=== PATIENT | female | born 1990 | race Two or more races ===

== ENCOUNTER 2023-08-22 04:24 | Emergency (ER) | payer MEDICAID, OTHER, SELFPAY ==
--- NOTE | 2023-08-22 | ECG_ITS ---
Test Reason : CHEST PAIN Blood Pressure : / mmHG Vent. Rate : 160 BPM Atrial Rate : 160 BPM P-R Int : 130 ms QRS Dur : 084 ms QT Int : 254 ms P-R-T Axes : 074 047 -04 degrees QTc Int : 414 ms Sinus tachycardia Nonspecific ST and T wave abnormality Abnormal ECG No previous ECGs available Referred By: Generic ED Physician Electronically Signed By:SRI BASHIR MD
[2023-08-22 04:35] VITALS: BP 118/71; PULSE 160; RESP 21; TEMP 36.9; O2SAT 100; BMI 23.4
[2023-08-22 04:50] VITALS: PULSE 107
--- NOTE | 2023-08-22 05:04 | ED_ITS ---
HPI - Chest Pain General Chief Complaint: Chest Pain Stated Complaint: chest pain, body shakes Time Seen by Provider: 08/22/23 04:46 Source: patient, family and operator maintainer Mode of arrival: ambulatory History of Present Illness HPI narrative: 33-year-old female who woke up with epigastric pain that is burning in nature and is noted to be shaking and states that she feels like her heart is racing, she is taking her own antibiotic from the [place] for some tooth pain but denies any medication allergies. Patient denies any recent nausea, vomiting, fever, chills and states she does have a history of anxiety and panic attack. Related Data Previous Rx's Medication Instructions Recorded hydroxyzine HCl 25 mg tablet 25 mg PO TID PRN anxiety #20 tabs 08/22/23 Allergies Allergy/AdvReac Type Severity Reaction Status Date / Time No Known Allergies Allergy Verified 08/22/23 04:50 Review of Systems 2 Review of Systems: Pertinent positives and negatives as stated in HPI PMFSH Past Medical History Source: nursing notes reviewed Social History Social History Smoked in Last 30 Days: No Use of substances other than those prescribed or required for medical reasons: No Advance Directives: No Advance Directives Information Provided: No Physical Exam 2 Vital Signs: Vital Signs: Last Vital Signs Temp 98.4 F 08/22/23 04:35 Pulse 99 08/22/23 05:06 Resp 21 H 08/22/23 04:35 BP 118/71 08/22/23 04:35 Pulse Ox 100 08/22/23 04:35 O2 Del Method Room Air 08/22/23 04:35 BMI result Body Mass Index 23.4 VITAL SIGNS: Reviewed. GENERAL: Well developed, well nourished, very anxious HEAD: Normocephalic/atraumatic EYES: PERRLA, EOMI EARS: Ext canals without abnormality, TMs non-bulging and non-erythematous NOSE: Nares patent bilateral OROPHARYNX: no oral lesions noted, posterior pharynx clear and non-erythematous without noted tonsillar enlargement/erythema/exudates NECK: Supple, no adenopathy LUNGS: Normal breath sounds, tachypnea. No adventitious sounds or accessory muscle use. SpO2<100> CARDIOVASCULAR: Regular rate and rhythm without noted murmurs ABDOMEN: Soft, non-tender, non-distended with bowel sounds. MUSCULOSKELETAL: No tenderness, deformities, or effusions noted on gross inspection. EXTREMITIES: No cyanosis, clubbing or edema. SKIN: Inspection of the skin reveals no rashes NEUROLOGIC: Alert and oriented x 4. Strength and sensation to light touch were grossly intact x 4. Medications Administered Discontinued Medications Generic Name Dose Route Start Last Admin Trade Name Freq PRN Reason Stop Dose Admin Hydroxyzine HCl 50 mg 08/22/23 04:46 08/22/23 05:05 Hydroxyzine Hcl 50 Mg Tablet PO 08/22/23 04:47 50 mg ONCE ONE Administration Medical Decision Making Medical Decision Making [facility] Narrative: 33-year-old female with history and clinical presentation, DDX: Panic attack, SVT INTERVENTION: 50 mg hydroxyzine I reviewed all investigation and hematologic indices negative for leukocytosis or left shift, no anemia or thrombocytopenia. Chemistry indices negative for SAUL/electrolyte or liver enzyme derangements and beta hCG is undetectable. Urinalysis negative for UTI. UDS is negative. Viral testing is negative for influenza/RSV/COVID-19. On re-evaluation patient's heart rate is 87 and she states she is feeling much better. My interpretation is that patient suffered from a panic attack and will be discharged with an as-needed script for hydroxyzine. Differential Diagnosis Differential Diagnoses: The differential diagnosis associated with the presentation includes Please see the discussion above Admission/Observation Consideration of admission/observation: Escalation of care including admission/observation considered Please see the discussion above Lab Data [facility] Lab Attestation statement: I reviewed the patient's lab results. Please see the discussion above 08/22/23 05:01 08/22/23 05:01 Labs: Lab Results 08/22/23 08/22/23 Range/Units 05:01 05:09 WBC 7.3 (4.8-10.8) X10*3/uL RBC 4.05 L (4.20-5.50) X10*6/uL Hgb 12.3 (12.0-16.0) g/dl Hct 35.9 L (37.0-47.0) % MCV 88.6 (80.0-98.0) fL MCH 30.4 (27.0-33.0) pg MCHC 34.3 (31.0-35.0) g/dl RDW 12.7 (11.0-16.0) % Plt Count 270 (160-400) X10*3/uL MPV 9.1 L (9.4-12.3) fL Immature Gran % (Auto) 0.1 (0.0-0.4) % Neut % (Auto) 40.7 L (45-73) % Lymph % (Auto) 52.0 H (20-40) % Hall % (Auto) 6.4 (2-11) % Eos % (Auto) 0.4 (0-4) % Baso % (Auto) 0.4 (0-2) % Lymph # (Auto) 3.8 (1.2-4.9) X10*3/uL Hall # (Auto) 0.5 (0.1-1.2) X10*3/uL Eos # (Auto) 0.0 (0.0-0.4) X10*3/uL Baso # (Auto) 0.0 (0.0-0.2) X10*3/uL Abs Immat Gran (auto) 0.01 (0.00-0.03) X10*3/uL Absolute Neuts (auto) 3.0 (2.0-8.3) x10*3/uL Absolute Nucleated RBC 0.000 (0.0-0.012) X10*3/uL Nucleated RBC % (auto) 0.0 (0.0-0.2) /100WBC Sodium 142 (135-145) mmol/L Potassium 3.7 (3.3-5.1) mmol/L Chloride 109 H (96-108) mmol/L Carbon Dioxide 24 (22-29) mmol/L Anion Gap 13 (12-20) BUN 12 (9-16) mg/dL Creatinine 0.77 (0.5-1.4) mg/dL Estim Creat Clear Calc 86.7 Estimated GFR > 60 Random Glucose 108 (60-115) mg/dL Calcium 9.2 (8.4-10.2) mg/dL Total Bilirubin 0.2 (0.0-1.0) mg/dL AST 23 (5-31) U/L ALT 33 H (0-31) U/L Alkaline Phosphatase 56 (39-117) U/L Total Protein 6.7 (6.5-8.0) g/dL Albumin 4.1 (3.5-5.0) g/dL Beta HCG, Quant < 2 mIU/mL Urine Color Yellow Urine Appearance Cloudy Urine pH 6.5 (5.0-9.0) Ur Specific [place] 1.025 (1.005-1.025) Urine Protein Negative (Neg-Trace) mg/dL Urine Glucose (UA) Negative (Negative) mg/dL Urine Ketones Negative (Negative) mg/dL Urine Blood Trace H (Negative) Urine Nitrite Negative (Negative) Ur Leukocyte Esterase Trace H (Negative) Urine RBC 11-20 H (0-2) /HPF Urine WBC 0-5 (0-5) /HPF Ur Squamous Epith Cells 0-2 (0-2) /HPF Urine Bacteria Trace (None Seen) Hyaline Casts 0-2 (0-2) /LPF Urine Opiates Screen Not Detected (Not Detect) Urine Fentanyl Screen Not Detected (Not Detect) Ur Barbiturates Screen Not Detected (Not Detect) Ur Phencyclidine Scrn Not Detected (Not Detect) Ur Amphetamines Screen Not Detected (Not Detect) U Benzodiazepines Scrn Not Detected (Not Detect) Urine Cocaine Screen Not Detected (Not Detect) U Marijuana (THC) Screen Not Detected (Not Detect) Influenza Type A (PCR) NEGATIVE (Negative) Influenza Type B (PCR) NEGATIVE (Negative) RSV RNA Qual (PCR) NEGATIVE (Negative) SARS-CoV-2 RNA (RT-PCR) NEGATIVE (Negative) Independent Interpretation I performed an independent interpretation of an: EKG Interpretation: Sinus tachycardia, HR-160, no STEMI, AR/QRS/QTC is within normal limits. Discharge Plan Discharge Clinical Impression: Atypical chest pain, Panic attack Patient Disposition: Home, Self-Care Instructions: Noncardiac Chest Pain (ED), Panic Attack (ED) Additional Instructions: 1. [place] el medicamento para la ansiedad seg?n las indicaciones. 2. Establezca atenci?n con un m?dico de atenci?n primaria lo antes posible. Regrese a la rosalinda de emergencias si los s?ntomas empeoran. 1. Take the medication for your anxiety as directed. 2. Please establish care with a primary care doctor at your earliest convenience. Return to the ER for any worsening symptoms. Prescriptions: New hydroxyzine HCl 25 mg tablet 25 mg PO TID PRN (Reason: anxiety) Qty: 20 0RF Print Language: Palestinian
[2023-08-22] MEDS: hydrOXYzine HCL 50 MG TABLET PO (05:05)
[2023-08-22 05:06] VITALS: PULSE 96; PULSE 99
[2023-08-22 05:06] LABS: MANUAL DIFF FLAG NO
[2023-08-22 05:07] LABS: Basophils Percent Auto 0.4 % (0-2); Eosinophils Percent Auto 0.4 % (0-4); Hematocrit 35.9 % (37.0-47.0); Hemoglobin 12.3 g/dl (12.0-16.0); Imm Gran Abs Auto 0.01 X10*3/uL (0.00-0.03); Imm Gran Pct Auto 0.1 % (0.0-0.4); Lymphocytes Absolute Auto 3.8 X10*3/uL (1.2-4.9); Mean Corpuscular HGB Conc 34.3 g/dl (31.0-35.0); Mean Corpuscular Hemoglobin 30.4 pg (27.0-33.0); Mean Corpuscular Volume 88.6 fL (80.0-98.0); Mean Platelet Volume 9.1 fL (9.4-12.3); Monocytes Absolute Auto 0.5 X10*3/uL (0.1-1.2); Monocytes Percent Auto 6.4 % (2-11); Neutrophils Percent Auto 40.7 % (45-73); Platelet Count 270 X10*3/uL (160-400); Red Blood Count 4.05 X10*6/uL (4.20-5.50); Red Cell Distribution Width 12.7 % (11.0-16.0); White Blood Count 7.3 X10*3/uL (4.8-10.8)
--- NOTE | 2023-08-22 05:08 | PC.NURSE ---
pt sx appear to worsen when feeling anxious. pt verbalizes feeling anxious and heart rate on monitor goes from 90s to high 150-160s which resolves with rest and deep breathing. ice pack provided. pt medicated per mar. pt denies sob/n/v/d. mom at bedside. vss. call spring within reach.
[2023-08-22 05:15] LABS: Appearance Urine Cloudy; Color Urine Yellow; Glucose Urine UA Negative (Negative); Leukocyte Esterase Urine Trace (Negative); Nitrite Urine Negative (Negative); PH 6.5 (5.0-9.0); Specific Gravity - Urine 1.025 (1.005-1.025); UMIC TRIGGER UACC YES; Urine Blood Trace (Negative); Urine Ketones Negative (Negative); Urine Protein Negative (Neg-Trace)
[2023-08-22 05:20] LABS: Bacteria Urine Trace (None Seen); Hyaline Casts Urine 0-2 /LPF (0-2); Squamous Epithelial Cell Urine 0-2 /HPF (0-2); WBC Urine 0-5 /HPF (0-5)
[2023-08-22 05:24] LABS: Amphetamine Screen Urine Not Detected (Not Detect); Barbiturates, Urine Not Detected (Not Detect); Benzodiazepines Screen Urine Not Detected (Not Detect); Cannabinoid Screen Urine Not Detected (Not Detect); Cocaine Screen Urine Not Detected (Not Detect); Fentanyl, urine Not Detected (Not Detect); Opiate Screen Urine Not Detected (Not Detect); Phencyclidine Screen Urine Not Detected (Not Detect)
[2023-08-22 05:29] LABS: Alanine Aminotransferase 33 U/L (0-31); Albumin Level 4.1 g/dL (3.5-5.0); Alkaline Phosphatase 56 U/L (39-117); Anion Gap 13 (12-20); Aspartate Amino Transferase 23 U/L (5-31); Bilirubin Total 0.2 mg/dL (0.0-1.0); Blood Urea Nitrogen 12 mg/dL (9-16); Calcium 9.2 mg/dL (8.4-10.2); Carbon Dioxide 24 mmol/L (22-29); Chloride 109 mmol/L (96-108); Creatinine Clr Calc Pharmacy 86.7; Estimated Glomerular Filt Rate > 60; Glucose Random 108 mg/dL (60-115); Potassium 3.7 mmol/L (3.3-5.1); Sodium 142 mmol/L (135-145); Total Protein 6.7 g/dL (6.5-8.0)
[2023-08-22 05:31] LABS: HCG Quantitative < 2 mIU/mL
[2023-08-22 05:47] LABS: Influenza A PCR NEGATIVE (Negative); Influenza B PCR NEGATIVE (Negative); Resp Syncy Virus RNA Qual PCR NEGATIVE (Negative); SARS COV2 PCR INHOUSE NEGATIVE (Negative)
[2023-08-22 06:08] VITALS: BP 106/61; PULSE 113; RESP 16; TEMP 36.8; O2SAT 96
== END 2023-08-22 06:45 | disposition home or self-care (01) ==
PROVIDERS: Emergency Provider Student in an Organized Health Care Education/Training Program
DX: R07.89 Other chest pain (principal); F41.0 Panic disorder [episodic paroxysmal anxiety]; F43.0 Acute stress reaction; R00.2 Palpitations; Z11.52 Encounter for screening for COVID-19; Z20.822 Contact with and (suspected) exposure to COVID-19; Z79.899 Other long term (current) drug therapy
CPT/HCPCS: 0241U; 36415; 80053; 80307; 81001; 84702; 85025; 93005; 99283; 99285

== ENCOUNTER → 2023-08-22 04:30 | Outpatient (BNV) | payer SELFPAY | PROVIDERS: Emergency Provider Student in an Organized Health Care Education/Training Program; Visit Provider Internal Medicine Cardiovascular Disease | DX: R07.9 Chest pain, unspecified (principal) | CPT/HCPCS: 93010 ==

== ENCOUNTER 2025-02-05 09:50 | Outpatient (REF) | payer MEDICAID, SELFPAY ==
--- OUTSIDE RECORDS SUMMARY | 2025-02-05 09:00 | XMS_ITS | Encounter Summary ---
Author Organization [employer] Address [address] [facility] [address] [place] [address] Care Team Providers Care Tree Specialist Name Role Phone Mia Ibrara Primary Care Provider [phone] Encounter Details Date Type Department Care Team ([facility] st Contact Info) Description 02/05/2025 9:00 AM EDT Office Visit [facility] MED[facility]INE [address] [place] [address] Mia Ibarra FNP [address] [place] [address] Well adult health check (Primary Dx) Social History Tobacco Use Types Packs/Day Years Used Date Smoking Tobacco: Never Passive Smoke Exposure: Never Smokeless Tobacco: Never Tobacco Cessation:Counseling Given: Not Answered Alcohol Use Standard Drinks/Week Comments Never 0 (1 standard drink = 0.6 oz pur e alcohol) Depression Answer Date Recorded Patient Health Questionnaire-9 Score 7 02/05/2025 Patient Health Questionnaire-9 Score 7 02/05/2025 Last PHQ-9: Questionnaire Data Not on file 0 02/05/2025 Housing Stability Answer Date Recorded What is your housing situation today? I have keke abbott 01/29/[address] you li ve. Do you have problems with any of the following? None of the above 01/29/2025 Food Insecurity Answer Date Recorded Within the past 12 months, y ou worried that your food would run out before you got money to buy more: Never True 01/29/2025 Within the past 12 months,th e food you bought just didn't last and you didn't have enough money to get more: Never True Transportation Answer Date Recorded In the past 12 months, has l ack of transportation kept you from medical appts, meetings, work or from getting things needed for daily living? No 01/29/2025 Utilities Answer Date Recorded In the past 12 months, has t he electric, gas, oil or water company threatened to shut off services in your home? No 01/29/2025 Depression Answer Date Recorded Patient Health Questionnaire-2 Score 2 02/05/2025 Internet Access Answer Date Recorded Internet Access Q1 Yes 01/29/2025 Internet Access Q2 Not on file 01/29/2025 Comments Yes Sex and Gender Information Value Date Recorded Sex Assigned at Female 01/16/2025 9:58 AM EDT Legal Sex Female 9:44 AM EST Gender Identity Female 01/16/2025 9:58 AM EDT Sexual Orientation Straight 01/16/2025 9: 58 AM EDT documented as of this encounter Last Filed Vital Signs Vital Sign Reading Time Taken Comments Blood Pressure 126/72 02/05/2025 9:00 AM EDT Pulse 85 02/05/2025 9:00 AM EDT Temperature 37.1 C (98.7 F) 02/05/2025 9:00 AM EDT Respiratory Rate 16 02/05/2025 9:00 AM EDT Oxygen Saturation 98% 02/05/2025 9:00 AM EDT Inhaled Oxygen Concentration - - Weight 65.4 kg (144 lb 4 oz) 02/05/2025 9:00 AM EDT Height 160.9 cm (5' 3.34 ) 02/05/2025 9:00 AM ED T Body Mass Index 25.28 02/05/2025 9:00 AM EDT documented in this encounter Functional Status * Over the past 2 weeks, how often have you been bothered by any of the following problems? Question Answer Date of Assessment Author Patient Health Questionnaire -2 Score 2 02/05/2025 9:02 AM EDT Shannan Clarke MA * Little interest or pleasure in doing things Answer Date of Assessment Author Several days 02/05/2025 9:02 AM EDT Shannan Santos MA * Feeling down, depressed, or hopeless Answer Date of Assessment Author Several days 02/05/2025 9:02 AM Shannan Douglass MA * Trouble falling or staying asleep, or sleeping too much Answer Date of Assessment Author More than half the days 02/05/2025 9:02 AM Shannan Vallejo MA * Feeling tired or having little energy Answer Date of Assessment Author More than half the days 02/05/2025 9:02 AM Shannan Vallejo MA * Poor appetite or overeating Answer Date of Assessment Author Not at all 02/05/2025 9:02 AM Shannan Garcia Ma, MA * Feeling bad about yourself - or that you are a failure or have let yourself or your family down Answer Date of Assessment Author Several days 02/05/2025 9:02 AM Shannan Douglass MA * Trouble concentrating on things, such as reading the newspaper or watching television Answer Date of Assessment Author Not at all 02/05/2025 9:02 AM Shannan Douglass MA * Moving or speaking so slowly that other people could have noticed? Or the opposite - being so fidgety or restless that you have been moving around a lot more than usual. Answer Date of Assessment Author Not at all 02/05/2025 9:02 AM Shannan Douglass MA * Thoughts that you would be better off or hurting yourself in some way Answer Date of Assessment Author Not at all 02/05/2025 9:02 AM Shannan Douglass MA * Patient Health Questionnaire-9 Score Answer Date of Assessment Author 7 02/05/2025 9:02 AM Shannan Douglass MA * How difficult have these problems made it for you to do your work, take care of things at home, or get along with other people? Answer Date of Assessment Author Not difficult at all 02/05/2025 9:02 AM Shannan Smith MA * Over the last 2 weeks, how often have you been bothered by any of the following problems? Question Answer Date of Assessment Author Feeling nervous, anxious, or on edge 2 02/05/2025 9:01 AM EDT Shannan Clarke MA Not being able to stop or control worrying 2 02/05/2025 9:01 AM EDT Shannan Clrake MA Worrying too much about different things 2 02/05/2025 9:01 AM EDT Shannan Clarke MA Trouble relaxing 2 02/05/2025 9:01 AM EDT Shannan Malik MA Being so restless that it is hard to sit still 1 02/05/2025 9:01 AM EDT Shannan Clarke MA Becoming easily annoyed or irritable 1 02/05/2025 9:01 AM EDT Shannan Clarke MA Feeling afraid as if somethi ng awful might happen 2 02/05/2025 9:01 AM EDT Shannan Clarke MA ANASTASIIA-7 Total Score 12 02/05/2025 9:01 AM EDT Shannan Clarke MA documented as of this encounter Plan of Treatment Scheduled Orders Name Type Priority Associated Diagnoses Orde r Schedule HIV-1/2 Antigen and Antibodies, Fourth Generation, with Reflexes Lab Routine Well adult health check Expected: 02/05/2025 (Approximate), Expires: 02/05/2026 Hepatitis C Antibody with Reflex to HCV, RNA, Quantitative, Real-Time PCR Lab Routine Well adult health check Expected: 02/05/2025, Expires: 02/05/2026 Hepatitis B surface antigen, EIA Lab Routine Well adult health check Expected: 02/05/2025 (Approximate), Expires: 02/05/2026 Hepatitis B Surface Antibody, Qualitative Lab Routine Well adult health check Expected: 02/05/2025 (Approximate), Expires: 02/05/2026 Hepatitis B Core Antibody, Total Lab Routine Well adult health check Expected: 02/05/2025 (Approximate), Expires: 02/05/2026 CBC auto differential Lab Routine Well adult health check Expected: 02/05/2025 (Approximate), Expires: 02/05/2026 Lipid Panel, Standard Lab Routine Well adult health check Expected: 02/05/2025 (Approximate), Expires: 02/05/2026 documented as of this encounter Visit Diagnoses Diagnosis Well adult health check- Primary Unspecified general medical examination documented in this encounter Additional Health Concerns Assessment Noted Time PHQ-9 Depression Total Score: 7 02/06/20 25 9:02 AM EDT documented as of this encounter Care Teams Tree Specialist Relationship Specialty Start Date End Date Mia Ibarra FNP [address] [place] [address] PCP - General Family Medicine 02/05/25 documented as of this encounter
--- OUTSIDE RECORDS SUMMARY | 2025-02-05 10:32 | XMS_ITS | Encounter Summary ---
Author Organization [employer] Address [address] [place] [address] Care Team Providers Care Cattery Operator Name Role Phone Unavailable Primary Care Provider Unavailabl e Encounter Details Date Type Department Care Team (Late st Contact Info) Description 02/04/2025 Telephone [facility] MEDICINE [address] [place] [address] Katia Blanca MA Social History Tobacco Use Types Packs/Day Years Used Date Smoking Tobacco: Never Smokeless Tobacco: Never Alcohol Use Standard Drinks/Week Comments Never 0 [...] AM EDT documented as of this encounter Miscellaneous Notes * Telephone Encounter - Katia Blanca MA - 02/04/2025 12:16 PM EDT Chart Prep Labs: done Images: not applicable Screenings: PAP and HIV screening Vaccines due: Covid Due, Tdap Due, Hep B Due, Flu Due, and HPV Referrals: Completed Overdue care gaps: Sbirt, PQ9, and GAD7 documented in this encounter Plan of Treatment Not on file documented as of this encounter Visit Diagnoses Not on filedocumented in this encounter
--- OUTSIDE RECORDS SUMMARY | 2025-02-05 10:32 | XMS_ITS | Clinical Summary ---
Author Organization [employer] Address [address] [facility] [address] [place] [address] Care Team Providers Care Obstetrics/Gynecology Nurse Name Role Phone Mia Ibarra Primary Care Provider [phone] Allergies No known active allergies Medications Pyridoxine HCl 10 MG tabletIndication s: with 11 completed weeks gestation,Nausea Take 1 tablet (10 mg) by mouth every 8 (eight) hours if needed (nausea). 30 tablet 1 01/16/2025 Active Active Problems Problem Noted Date Diagnosed Date Anxiety 01/16/2025 Assessment & Plan (01/16/2025 11:22 AM EDT): Reports anxiety and sleep disturbances. Not currently medicated. Discussed medication dangers for . Comments Yes Encounters Date Type Department Care Team Description 02/05/2025 9:00 AM EDT Office Visit [facility] MEDICINE [address] [place] [address] Mia Ibarra FNP Well adult health check (Primary Dx) 02/05/2025 Travel 02/04/2025 Telephone [facility] MEDICINE [address] [place] [address] Katia Blanca MA 01/29/2025 Patient Outreach [facility] PEDS [address] [place] [address] Mia Ibarra FNP Pre-visit Planning (SDOH negative, Tobacco screening negative) 01/29/2025 Travel 01/16/2025 10:00 AM EDT Office Visit [facility] WALK-IN CENTER [address] [place] [address] Ronit Mehta MD with 11 completed weeks gestation (Primary Dx); Nausea; Anxiety 01/16/2025 Travel 01/16/2025 Telephone [facility] INS ENROLLMENT [address] [place] [address] Agnes Jackson MD from Last 3 Months Family History Medical History Relation Name Comments Colon cancer Maternal Grandfather sd at 90 Cancer Mother's Brother Heart disease Mother's Brother Cancer Mother's Sister Relation Name Status Comments Maternal Grandfather Mother's Brother Mother's Sister Social History Tobacco Use Types Packs/Day Years [...] Orientation Straight 01/16/2025 9: 58 AM EDT Last Filed Vital Signs Vital Sign Reading [...] Mass Index 25.28 02/05/2025 9:00 AM EDT Plan of Treatment Health Maintenance Due Date Last Done Comments HIV Screening 1991 Family Planning (PISQ) 2006 HPV Vaccines (1 - 3-dose series) 2006 Hepatitis C Screening 2009 DTaP/Tdap/Td Vaccines (1 - Tdap) 2010 Hepatitis B Vaccines (1 of 3 - 19+ 3-dose series) 2010 Pap Smear 02/02/2012 Cervical Cancer Screening 2021 HPV/Cotest 2021 COVID-19 Vaccine ( - 2023-2 5 season) 2024 Influenza Vaccine (#1) 2025 Disability Screening 01/29/2026 01/29/2025 SDOH Screening 01/29/2026 01/29/2025 Alcohol/Substance Use Screening 02/05/2026 02/05/2025 Depression Screening 02/05/2026 02/05/2025, 02/05/2025 Tobacco Screening 02/05/2026 02/05/2025 Zoster Vaccines (1 of 2) 2041 RSV Patients and Patients Aged 60 years or older (1 - 1-dose 75+ series) 2066 HIB Vaccines Aged Out No longer eligi ble based on patient's age to complete this topic Hepatitis A Vaccines Aged Out No long er eligible based on patient's age to complete this topic IPV Vaccines Aged Out No longer eligi ble based on patient's age to complete this topic Meningococcal B Vaccine Aged Out No l onger eligible based on patient's age to complete this topic Meningococcal Vaccine Aged Out No inessa russ eligible based on patient's age to complete this topic Pneumococcal Vaccine: Pediatrics (0 to 5 Years) and At-Risk Patients (6 to 49) Years Aged Out No longer eligible b ased on patient's age to complete this topic RSV under 20 months Aged Out No longe r eligible based on patient's age to complete this topic Rotavirus Vaccines Aged Out No longer eligible based on patient's age to complete this topic Procedures Procedure Name Priority Date/Time Associated Diagnosis Comments POCT , URINE Routine 01/16/2025 10:47 AM EDT with 11 completed weeks gestation from Last 3 Months Results * (ABNORMAL) POCT , urine manually resulted (01/16/2025 10:47 AM EDT) Preg Test, Ur Positive (A) Negative, Indeterminate, None Detected, Invalid, Specimen unsatisfactory for evaluation, Weakly Positive, 2+ QC Media Lot # [id number] Lot# Expiration Date [id number] Urine 01/16/2025 10:4 7 AM EDT Ronit Mehta MD POINT OF CARE TEST ENTER/E DIT ORDERABLES Final Result from Last 3 Months Insurance [facility] [employer] C3 Care Teams Obstetrics/Gynecology Nurse Relationship Specialty Start Date End Date Mia Ibarra FNP [address] [place] [address] PCP - General Family Medicine 02/05/25
--- OUTSIDE RECORDS SUMMARY | 2025-02-05 10:32 | XMS_ITS | Encounter Summary ---
Author Organization [employer] Address [address] [facility] [address] [place] [address] Care Team Providers Care Supervisor Costuming Name Role Phone Mia Ibarra DIGITAL PRODUCTION MANAGER Primary Care Provider [phone] Encounter Details Date Type Department Care Team (Latest Contact Info) Description 02/05/2025 Travel Social History Tobacco Use Types Packs/Day Years Used Date Smoking Tobacco: Never Passive Smoke Exposure: Never Smokeless Tobacco: Never Alcohol Use Standard [...] AM EDT documented as of this encounter Functional Status * Over the [...] 9:02 AM EDT Shannan Santos MA * Trouble falling or staying asleep, or sleeping too much Answer Date of Assessment Author More than half the days 02/05/2025 9:02 AM EDT R Shannan Myers MA * Feeling tired or having little energy Answer Date of Assessment Author More than half the days 02/05/2025 9:02 AM EDT R Shannan Myers MA * Poor appetite or overeating Answer Date of Assessment Author Not at all 02/05/2025 9:02 AM EDT Shannan Santos MA * Feeling bad about yourself - or that you are a failure or have let yourself or your family down Answer Date of Assessment Author Several days 02/05/2025 9:02 AM EDT Shannan Santos MA * Trouble concentrating on things, such as reading the newspaper or watching television Answer Date of Assessment Author Not at all 02/05/2025 9:02 AM EDT Shannan Santos MA * Moving or speaking so slowly [...] Author Not at all 02/05/2025 9:02 AM MARYAT Shannan Santos MA * Patient Health Questionnaire-9 Score Answer Date of Assessment Author 7 02/05/2025 9:02 AM EDT Shannan Santos MA * How difficult have these problems made it for you to do your work, take care of things at home, or get along with other people? Answer Date of Assessment Author Not difficult at all 02/05/2025 9:02 AM EDT Shannan Perla MA * Over the last 2 weeks, how often have you been bothered by any of the following problems? Question Answer Date of Assessment Author Feeling nervous, anxious, or on edge 2 02/05/2025 9:01 AM EDT Shannan Clarke MA Not being able to stop or control worrying 2 02/05/2025 9:01 AM MARYAT Shannan Clarke MA Worrying too much about different things 2 02/05/2025 9:01 AM MARYAT Shannan Clarke MA Trouble relaxing 2 02/05/2025 9:01 AM EDT Shannan Malik MA Being so restless that it is hard to sit still 1 02/05/2025 9:01 AM MARYAT Shannan Clarke MA Becoming easily annoyed or irritable 1 02/05/2025 9:01 AM MARYAT Shannan Clarke MA Feeling afraid as if somethi ng awful might happen 2 02/05/2025 9:01 AM MARYAT Shannan Clarke MA ANASTASIIA-7 Total Score 12 02/05/2025 9:01 AM Shannan Lozano MA documented as of this encounter Plan of Treatment Not on file documented as of this encounter Visit Diagnoses Not on filedocumented in this encounter Additional Health Concerns Assessment Noted Time PHQ-9 Depression Total Score: 7 02/06/20 9:02 AM EDT documented as of this encounter Care Teams Supervisor Costuming Relationship Specialty Start Date End Date Mia Ibarra FNP [address] [place] [address] PCP - General Family Medicine 02/05/25 documented as of this encounter
[2025-02-05 11:12] LABS: MANUAL DIFF FLAG NO
[2025-02-05 11:16] LABS: Hematocrit 40.0 % (37.0-47.0); Hemoglobin 13.6 g/dl (12.0-16.0); Imm Gran Abs Auto 0.03 X10*3/uL (0.00-0.03); Imm Gran Pct Auto 0.3 % (0.0-0.4); Lymphocytes Absolute Auto 2.5 X10*3/uL (1.2-4.9); Mean Corpuscular HGB Conc 34.0 g/dl (31.0-35.0); Mean Corpuscular Hemoglobin 32.2 pg (27.0-33.0); Mean Corpuscular Volume 94.8 fL (80.0-98.0); NRBC Abs Auto 0.000 X10*3/uL (0.0-0.012); NRBC Pct Auto 0.0 /100WBC (0.0-0.2); Platelet Count 285 X10*3/uL (160-400); Red Blood Count 4.22 X10*6/uL (4.20-5.50); White Blood Count 9.4 X10*3/uL (4.8-10.8)
[2025-02-05 11:59] LABS: Cholesterol 172 mg/dL (<200); HDL Cholesterol 62 mg/dL (>40); Triglycerides 62 mg/dL (<150)
[2025-02-06 04:00] LABS: HBS Num1 1.32 mIU/mL (0-7.99); HBc Num1 0.06 S/CO (0.00-0.79); HBsAGNum1 0.38 S/CO (0.00-0.99); HIV Num 1 0.04 S/CO (0.00-0.99); Hepatitis B Surface Antigen Negative (Negative); ~HepC Num1 0.11 S/CO (0.00-0.79); ~Hepatitis B Surface Antibody NONREACTIVE (Nonreactive); ~Hepatitis C Antibody Nonreactive (Nonreactive)
== END 2025-02-05 09:51 | disposition home or self-care (01) ==
LOC: HO.HHCL 09:50
PROVIDERS: PCP Nurse Practitioner Family; Visit Provider Nurse Practitioner Family
DX: Z00.00 Encounter for general adult medical examination without abnormal findings (principal); Z11.59 Encounter for screening for other viral diseases; Z11.4 Encounter for screening for human immunodeficiency virus [HIV]
CPT/HCPCS: 36415; 80061; 85025; 86704; 86706; 86803; 87340; 87389

== ENCOUNTER 2025-04-09 09:03 | Outpatient (REF) | payer MEDICAID, SELFPAY ==
--- OUTSIDE RECORDS SUMMARY | 2025-04-09 10:45 | XMS_ITS | Encounter Summary ---
Author Organization [employer] Address [address] [facility] 7t [place] [address] Care Team Providers Care Pmo Manager Name Role Phone Giuseppe Ibarraupe WILMA Primary Care Provider [phone] Reason for Visit * Reason Comments pap Encounter Details Date Type Department Care Team (Latest Contact Info) Description 04/09/2025 10:45 AM EDT Procedure Visit [facility] MEDIC[facility] [address], [place] [phone] Mellissa Hassan CNM [address], [place] [phone] Abnormal uterine bleeding (Primary Dx); Cervical cancer screening; Urinary symptom or sign Social History Tobacco Use Types Packs/Day Years Used Date Smoking Tobacco: Never Passive Smoke Exposure: Never Smokeless Tobacco: Never Tobacco Cessation:Counseling Given: Not Answered Alcohol Use Standard Drinks/Week Comments Never 0 (1 standard drink = 0.6 oz pur e alcohol) Depression Answer Date Recorded Patient Health Questionnaire-9 Score 12 02/24/2025 Patient Health Questionnaire-9 Score 12 02/24/2025 Last PHQ-9: Questionnaire Data Not on file 0 02/24/2025 Housing Stability Answer Date Recorded What is [...] Answer Date Recorded Patient Health Questionnaire-2 Score 4 02/24/2025 Internet Access Answer Date Recorded Internet Access Q1 Yes 01/29/2025 Internet Access Q2 Not on file 01/29/2025 Comments No Intention Date Recorded Wants to become (finding) 04/09 Sex and Gender Information Value Date Recorded Sex Assigned at Female 01/16/2025 9:58 AM EDT Legal Sex Female 9:44 AM EST Gender Identity Female 01/16/2025 9:58 AM EDT Sexual Orientation Straight 01/16/2025 9: 58 AM EDT documented as of this encounter Last Filed Vital Signs Vital Sign Reading Time Taken Comments Blood Pressure 118/78 04/09/2025 11:01 AM EDT Pulse 85 04/09/2025 11:01 AM EDT Temperature 36.3 C (97.4 F) 04/09/2025 11:01 AM EDT Respiratory Rate 14 04/09/2025 11:01 AM EDT Oxygen Saturation 99% 04/09/2025 11:01 AM EDT Inhaled Oxygen Concentration - - Weight 68.5 kg (151 lb) 04/09/2025 11:01 AM EDT Height - - Body Mass Index 26.46 02/05/2025 9:00 AM EDT documented in this encounter Progress Notes * Mellissa Hassan CNM - 04/09/2025 10:45 AM EDT Subjective Patient ID: Eri Hurt is a 35 y.o. female who presents for followup early loss Early loss about a month and a half ago, medication management. Bled x 15 days. Has been having frequent bleeding since then which is worsened by heavy lifting. She wonders if she has UTI. Denies urinary symptoms. 1 AMAB partner x 7weeks. Would like to be again. Not taking . No pap on file. She is unsure when she had one last. 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 Review of Systems Constitutional: Negative for chills and fever. Genitourinary: Positive for menstrual problem and vaginal bleeding. Negative for difficulty urinating, dysuria, frequency, pelvic pain, urgency, vaginal discharge and vaginal pain. Musculoskeletal: Negative for back pain. Objective BP 118/78 (BP Location: Left arm, Patient Position: Sitting, BP Cuff Size: Adult) Pulse 85 Temp97.4 ??F (36.3 ??C) (Oral) Resp 14 Wt 151 lb (68.5 kg) LMP 04/09/2025 SpO2 99% BMI 26.46 kg/m?? Physical Exam Incident Analyst present: declines log operations coordinator. Constitutional: Appearance: Normal appearance. Abdominal: Tenderness: There is no right CVA tenderness or left CVA tenderness. Genitourinary: General: Normal vulva. Labia: Right: No rash, tenderness, lesion or injury. Left: No rash, tenderness, lesion or injury. Vagina: Normal. No signs of injury and foreign body. No vaginal discharge, erythema, tenderness, bleeding or lesions. Cervix: No cervical motion tenderness, discharge, friability, lesion, erythema, cervical bleeding or eversion. Uterus: Normal. Not enlarged and not tender. Adnexa: Right adnexa normal and left adnexa normal. Right: No mass, tenderness or fullness. Left: No mass, tenderness or fullness. Comments: Scant blood in vagina Neurological: Mental Status: She is alert. Psychiatric: Mood and Affect: Mood normal. Behavior: Behavior normal. Assessment/Plan Diagnoses and all orders for this visit: Abnormal uterine bleeding - POCT , urine manually resulted - POCT fern test, vaginal fluid manually resulted Negative test today, no obvious vaginitis. Will send pap and rule out STI. If all negative, will order pelvic ultrasound. sent in. Cervical cancer screening - Pap Smear - STI testing add on (NG, CT, Trich) Pap and STI testing sent. Repeat pap/HPV 5y if normal/HPV neg. Urinary symptom or sign - Culture, Urine, Routine; Future Urine discarded from visit. Will have her go to lab for urine culture and contact her with results. Other orders - Vit-Fe Fumarate-FA ( Plus) 27-1 MG tablet; One tablet by mouth daily documented in this encounter Plan of Treatment Upcoming Encounters Date Type Department Care Team (Late st Contact Info) Description 07/24/2025 3:00 PM EST Office Visit [facility] OPTOMETRY [address] [place], [place] [phone] TarCharley nayak, OD [address] [place] [address] Scheduled Orders Name Type Priority Associated Diagnoses Orde r Schedule Pap Smear Pathology and Cytology Routine Cervical cancer screening Ordered: 04/09/2025 STI testing add on (NG, CT, Trich) Pathology and Cytology Routine Cervical cancer screening Ordered: 04/09/2025 Culture, Urine, Routine Microbiology Routine Urinary symptom or sign Expected: 04/09/2025 (Approximate), Expires: 04/09/2026 documented as of this encounter Procedures Procedure Name Priority Date/Time Associated Diagnosis Comments POCT , URINE Routine 04/09/2025 11:38 AM EDT Abnormal uterine bleeding POCT WET MOUNT/MOOKIE Routine 04/09/2025 11 :36 AM EDT Abnormal uterine bleeding documented in this encounter Results * POCT , urine manually resulted (04/09/2025 11:38 AM EDT) Preg Test, Ur Negative Negative, Indeterminate, None Detected, Invalid, Specimen unsatisfactory for evaluation, Weakly Positive, 2+ Urine 04/09/2025 11:3 8 AM EDT Mellissa Hassan CNM POINT OF CARE TEST ENTER/ EDIT ORDERABLES Final Result * POCT fern test, vaginal fluid manually resulted (04/09/2025 11:36 AM EDT) MOOKIE Prep Negative Comment:pH 4.5, neg whiff, n eg clue, neg yeast, neg trich, neg wbc Vaginal Fluid Vaginal structure / Unknown 04/09/2025 11:36 AM EDT Mellissa Hassan CNM POINT OF CARE TEST ENTER/ EDIT ORDERABLES Final Result documented in this encounter Visit Diagnoses Diagnosis Abnormal uterine bleeding- Primary Unspecified disorder of menstruation and other abnormal bleeding from female genital tract Cervical cancer screening Screening for malignant neoplasm of the cervix Urinary symptom or sign documented in this encounter Additional Health Concerns Assessment Noted Time PHQ-9 Depression Total Score: 12 02/24/ 025 5:23 PM EDT documented as of this encounter Care Teams Pmo Manager Relationship Specialty Start Date End Date Mia Ibarra FNP [address] [place] [phone] PCP - General Family Medicine 02/05/25 documented as of this encounter
--- OUTSIDE RECORDS SUMMARY | 2025-04-10 10:08 | XMS_ITS | Clinical Summary ---
Author Organization [employer] Address [address] [facility] 7[address] [place] [address] Care Team Providers Care Commercial Loan Administrator Name Role Phone FlexGiuseppe sabillonupe WILMA Primary Care Provider [phone] Allergies No known active allergies Medications * This document contains information received from the source organization and may not represent a complete record from that organization. Pyridoxine HCl 10 MG tabletIndication s: with 11 completed weeks gestation,Nausea Take 1 tablet (10 mg) by mouth every 8 (eight) hours if needed (nausea). 30 tablet 1 01/16/2025 Active multivitamin () 27-0.8 MG tablet Take 1 tablet by mouth Once per day. 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 Pt reports she recently had a miscarriage. Offered grief counseling but pt feels not ready yet to address her loss. Pt reports having diagnosis for anxiety and depression and following with mental health providers in the [place]. Pt lost care when [place] the [place] two [place] ago. Pt posses the insight and strength to overcome this difficult time. She also receives family support from her and mother. Anxiety 01/16/2025 Assessment & Plan (01/16/2025 11:22 AM EDT): Reports anxiety and sleep disturbances. Not currently medicated. Discussed medication dangers for . Encounters * This document contains information received from the source organization and may not represent a complete record from that organization. Date Type Department Care Team Description 04/09/2025 10:45 AM EDT Procedure Visit [facility] [address] [place] [phone] Mellissa Hassan CNM Abnormal uterine bleeding (Primary Dx); Cervical cancer screening; Urinary symptom or sign 04/08/2025 Travel 04/08/2025 Telephone [facility] [address] [place] [phone] Mia Ibarra FNP Nurse Triage 03/14/2025 Population Health Risk Score [facility] (C[facility]) Department [address] [phone] Provider, Population Health Generic 02/24/2025 Telephone [facility] [address] [place] [address] Mia Ibarra FNP [place] (I called the patient regarding a Health Care Provider Form, from [facility]. She stated that she is , and had been having abdominal pain when she was doing heavy lifting at work. She has been out of work since 02/09/25, and cannot return until she turns in the FMLA form. She would like for the dates of absence to be from 02/09/25 to 02/14/25.) 02/05/2025 9:00 AM EDT Office Visit [facility] [address] [place] [address] Mia Ibarra FNP Well adult health check (Primary Dx); Anxiety; 9 weeks gestation of ; Lower abdominal pain, unspecified 02/05/2025 Travel 02/04/2025 Telephone [facility] [address] [place] [address] Katia Blanca MA 01/29/2025 Patient Outreach [facility] [address] [place] [address] Mia Ibarra FNP Pre-visit Planning (SDOH negative, Tobacco screening negative) 01/29/2025 Travel 01/16/2025 10:00 AM EDT Office Visit [facility] [address] [place] [address] Ronit Mehta MD with 11 completed weeks gestation (Primary Dx); Nausea; Anxiety 01/16/2025 Travel 01/16/2025 Telephone [facility] [address] [place] [address] Agnse Jackson MD from Last 3 Months Family [...] (151 lb) 04/09/2025 11:01 AM EDT Height 160.9 cm (5' 3.34 ) 02/05/2025 9:00 AM ED T Body Mass Index 26.46 02/05/2025 9:00 AM EDT Plan of Treatment Upcoming Encounters Date Type Department Care Team (Late st Contact Info) Description 07/24/2025 3:00 PM EST Office Visit [facility] OPTOMETRY [address] [place], [place] [phone] Charley Gaines, OD [address] [place] [address] Health Maintenance Due Date Last Done Comments HPV Vaccines (1 - 3-dose series) 2006 DTaP/Tdap/Td Vaccines (1 - Tdap) 2010 Hepatitis B Vaccines (1 of 3 - 19+ 3-dose series) 2010 Pap Smear 02/02/2012 Cervical Cancer Screening 2021 HPV/Cotest 2021 COVID-19 Vaccine (1 - 2023-2 5 season) 2025 Influenza Vaccine (#1) 2025 Depression Monitoring 08/24/2025 02/24/2025 , 02/24/2025 Disability Screening 01/29/2026 01/29/2025 SDOH Screening 01/29/2026 01/29/2025 Alcohol/Substance Use Screening 02/05/2026 02/05/2025 Family Planning (PISQ) 04/09/2026 04/09/2025 Tobacco Screening 04/09/2026 04/09/2025 Zoster Vaccines (1 of 2) 2041 RSV Patients and Patients Aged 60 years or older (1 - 1-dose 75+ series) 2066 HIV Screening Completed 02/05/2025 Hepatitis C Screening Completed 02/05/2025 HIB Vaccines Aged Out No longer eligi [...] 11 :36 AM EDT Abnormal uterine bleeding LIPID PANEL, STANDARD Routine 02/05/2025 10:01 AM EDT Well adult health check CBC WITH AUTO DIFFERENTIAL Routine 02/05/2025 10:01 AM EDT Well adult health check HEPATITIS B CORE AB TOTAL Routine 02/05/2025 10:01 AM EDT Well adult health check HEPATITIS B SURFACE ANTIBODY, QUALITATIVE Routine 02/05/2025 10:01 AM EDT Well adult health check HEPATITIS B SURFACE ANTIGEN, EIA Routine 02/05/2025 10:01 AM EDT Well adult health check HEPATITIS C AB W/REFL TO HCV RNA, QN, PCR Routine 02/05/2025 10:01 AM EDT Well adult health check HIV 1/2 ANTIGEN/ANTIBODY, FOURTH GENERATION W/RFL Routine 02/05/2025 10:01 AM EDT Well adult health check POCT , URINE Routine 01/16/2025 10:47 AM EDT with 11 completed weeks gestation from Last 3 Months Results * POCT , urine manually resulted (04/09/2025 11:38 AM EDT) Only the most recent of2 resultswithin the time period is included. Preg Test, Ur Negative Negative, Indeterminate, None [...] / Unknown 04/09/2025 11:36 AM EDT Mellissa Mo MILNER POINT OF CARE TEST ENTER/ EDIT ORDERABLES Final Result * (ABNORMAL) CBC auto differential (02/05/2025 10:01 AM EDT) White Blood Count 9.4 4.8 - 10.8 X10*3/uL [facility] Red Blood Count 4.22 4.20 - 5.50 X10*6/uL [facility] Hemoglobin 13.6 12.0 - 16.0 g/dl [facility] Hematocrit 40.0 37.0 - 47.0 % [facility] Mean Corpuscular Volume 94.8 80.0 - 98.0 fL [facility] Mean Corpuscular Hemoglobin 32.2 27.0 - 33.0 pg [facility] Mean Corpuscular HGB Conc 34.0 31.0 - 35.0 g/dl [facility] Red Cell Distribution Width 12.4 11.0 - 16.0 % [facility] Platelet Count 285 160 - 400 X10*3/uL [facility] Mean Platelet Volume 9.3(L) 9.4 - 12.3 fL [facility] Neutrophils Percent Auto 67.7 45 - 73 % [facility] Imm Gran Pct Auto 0.3 0.0 - 0.4 % [facility] Lymphocytes Percent Auto 26.1 20 - 40 % [facility] Monocytes Percent Auto 5.4 2 - 11 % [facility] Eosinophils Percent Auto 0.2 0 - 4 % [facility] Basophils Percent Auto 0.3 0 - 2 % [facility] NRBC Pct Auto 0.0 0.0 - 0.2 /100WBC [facility] Neutrophils Absolute Auto 6.4 2.0 - 8.3 x10*3/uL [facility] Imm Gran Abs Auto 0.03 0.00 - 0.03 X10*3/uL [facility] Lymphocytes Absolute Auto 2.5 1.2 - 4.9 X10*3/uL [facility] Monocytes Absolute Auto 0.5 0.1 - 1.2 X10*3/uL [facility] Eosinophils Absolute Auto 0.0 0.0 - 0.4 X10*3/uL [facility] Basophils Absolute Auto 0.0 0.0 - 0.2 X10*3/uL [facility] NRBC Abs Auto 0.000 0.0 - 0.012 X10*3/uL [facility] Blood Venous blood specimen / Unknown 02/05/2025 10:01 AM EDT 02/05/2025 11:02 AM EDT Mia TajSeva Search [facility] LAB BLOOD ORDERABLES Final Res ult Performing Organization Address [facility] Co de Phone Number [facility] [address] [place] [address] [phone] * Hepatitis C Antibody with Reflex to HCV, RNA, Quantitative, Real-Time PCR (02/05/2025 10:01 AM EDT) Pathologist [facility] Hepatitis C Antibody Nonreactive Nonreactive [facility] Comment:Antibodies to HCV no t detected; does not exclude early acuteHCV infection. Blood Venous blood specimen / Unknown 02/05/2025 10:01 AM EDT 02/05/2025 11:02 AM EDT [facility] Final Res ult Performing Organization Address City/[facility]/ZIP Co de Phone Number [facility] [address] [place] [phone] * Hepatitis B surface antigen, EIA (02/05/2025 10:01 AM EDT) Pathologist [facility] Hepatitis B Surface Ag Negative Negative [facility] Blood Venous blood specimen / Unknown 02/05/2025 10:01 AM EDT 02/05/2025 11:02 AM EDT MiaAmicus Medicus [facility] LAB BLOOD ORDERABLES Final Res ult Performing Organization Address City/[facility]/ZIP Co de Phone Number [facility] [address] [place] [phone] * Hepatitis B Core Antibody, Total (02/05/2025 10:01 AM EDT) Hepatitis B Core Antibody Nonreactive Nonreactive [facility] Blood Venous blood specimen / Unknown 02/05/2025 10:01 AM EDT 02/05/2025 11:02 AM EDT [facility] Final Res ult Performing Organization Address [facility] Co de Phone Number [facility] [address] [place] [phone] * HIV-1/2 Antigen and Antibodies, Fourth Generation, with Reflexes (02/05/2025 10:01 AM EDT) HIV AB/AG Nonreactive Nonreactive [facility] Comment:HIV-1 p24 Ag and/or HIV-1/HIV-2 Ab not detected.A test result that is nonreactive does not exclude thepossibility of exposure to or infection with HIV-1 and/orHIV-2. Nonreactive results in this assay for individualswith prior exposure to HIV-1 and/or HIV-2 may be due toantigen and antibody levels that are below the limit ofdetection of this assay.The [employer] HIV Ag/Ab Combo assay result andsupplemental assay results should be interpreted inconjunction with the patient's clinical presentation,history and other laboratory results. If the results areinconsistent with clinical evidence, additional testing issuggested to confirm the result. Blood Venous blood specimen / Unknown 02/05/2025 10:01 AM EDT 02/05/2025 11:02 AM EDT [facility]ABLES Final Res ult Performing Organization Address City/[facility]/ZIP Co de Phone Number [facility] [address] [place] [phone] [phone] * Hepatitis B Surface Antibody, Qualitative (02/05/2025 10:01 AM EDT) ~Hepatitis B Surface Antibody NONREACTIVE Nonreactive [facility] Comment:Nonreactive: < 8.00 mIU/mL Blood Venous blood specimen / Unknown 02/05/2025 10:01 AM EDT 02/05/2025 11:02 AM EDT us Mia Ibarra POLITICAL ANTHROPOLOGIST LAB BLOOD ORDERABLES Final Res ult Performing Organization Address [facility] Co de Phone Number [facility] [address] [place] [phone] * Lipid Panel, Standard (02/05/2025 10:01 AM EDT) Triglycerides 62 <150 mg/dL [facility] Comment:Desirable Triglyceri de: less than 150 mg/dLBorderline High Triglyceride 150-199 mg/dLHigh Triglyceride: 200-499 mg/dLVery High Triglyceride: greater than or equal to 5OO mg/dL Cholesterol 172 <200 mg/dL [facility] Comment:Desirable Cholestero l: less than 200 mg/dLBorderline High Cholesterol: 200-239 mg/dLHigh Cholesterol: greater than 239 mg/dL LDL Cholesterol Calculated 98 <100 mg/dL [facility] Comment:Desirable LDL: less than 100 mg/dLNear Optimal/Above Optimal LDL: 110- 129 mg/dLBorderline High LDL: 130-159 mg/dLHigh LDL: 160-189 mg/dLVery High LDL: greater than or equal to 190 mg/dL HDL Cholesterol 62 >40 mg/dL [facility] Comment:Desirable HDL: great er than 40 mg/dL Note: This HDL assay may give artificially low results in patients with liver disease. Blood Venous blood specimen / Unknown 02/05/2025 10:01 AM EDT 02/05/2025 11:23 AM EDT Mia DILLON LAB BLOOD ORDERABLES Final Res ult [facility] [address] [place] [phone] from Last 3 Months Insurance [employer] C3 Care Teams Commercial Loan Administrator Relationship Specialty Start Date End Date Mia Ibarra FNP [address] [place] [phone] PCP - General Family Medicine 02/05/25
--- OUTSIDE RECORDS SUMMARY | 2025-04-10 10:08 | XMS_ITS | Encounter Summary ---
Author Organization [employer] Address [address] [facility] 7t [place] [address] Care Team Providers Care Gear Machinist Name Role Phone Mia Ibarra ADDICTIONS RECOVERY SPECIALIST Primary Care Provider Encounter Details Date Type Department Care Team (Latest Contact Info) Description 04/08/2025 Travel Social History Tobacco Use Types Packs/Day [...] AM EDT documented as of this encounter Plan of Treatment Upcoming Encounters Date Type Department Care Team (Late st Contact Info) Description 07/24/2025 3:00 PM EST Office Visit [facility] [address] [place], [place] [phone] Charley Gaines, OD [address] [place] [address] documented as of this encounter Visit Diagnoses Not on filedocumented in this encounter Additional Health Concerns Assessment Noted Time PHQ-9 Depression Total Score: 12 025 5:23 PM EDT documented as of this encounter Care Teams Gear Machinist Relationship Specialty Start Date End Date Mia Ibarra FNP [address] [place], [place] [phone] PCP - General Family Medicine 02/05/25 documented as of this encounter
--- OUTSIDE RECORDS SUMMARY | 2025-04-10 10:08 | XMS_ITS | Encounter Summary ---
Author Organization [employer] Address [address] [place] [address] Care Team Providers Care Wage And Salary Administrator Name Role Phone Mia Ibarra Primary Care Provider [phone] Reason for Visit * Reason Onset Date Comments Nurse Triage 04/08/2025 Encounter Details Date Type Department Care Team ([facility] st Contact Info) Description 04/08/2025 Telephone [facility] MEDICINE [address] [place] [address] Mia Ibarra FNP [address] [place] [address] Nurse Triage Social History Tobacco Use Types Packs/Day Years [...] is your housing situation today? I have kekenabil abbott 01/29/[address] you [...] encounter Miscellaneous Notes * Telephone Encounter - Altagracia Aguilar RN - 04/08/2025 2:07 PM EDT TC placed to patient using BLS #ID [id number]. Patient reported a miscarriage 1 and 1/2 month ago, vaginal bleeding for 15 days after miscarriage. Stopped bleeding 1 and 1/2 week ago, c/o vaginal discomfort. Does not have TONAL REGULATOR provider and has not had f/u after miscarriage per patient. Denies abd pain, denies any fevers or s/s of infection. Patient requested an appt with a provider for a possible pap smear. RN scheduled the patient with [facility] CMW. Patient agreed to the appt. RN advised patient if the vaginal bleeding return and she is using 1 pad or tampon every hour to go to the ED for further evaluation. Patient verbalized understanding. Protocol Used: Vaginal Bleeding - Abnormal (Adult) Protocol-Based Disposition: See in Office or Video Visit Today Video visit not offered Positive Triage Questions: * Patient wants to be seen * Bleeding or spotting after procedure (e.g., biopsy) or pelvic examination (e.g., pap smear) that lasts > 7 days * Normal menstrual flow * Mild bleeding or Spotting after procedure (e.g., biopsy) or pelvic examination (e.g., pap smear) persisting < 7 days * All higher-acuity triage questions were negative Care Advice Discussed: * Reassurance and Education - Normal Menses * Reassurance and Education - Spotting After Pelvic Exam or Procedure * Iron and Anemia * Reasons To Call Back - Severe abdomen pain or lightheadedness occurs - test is positive - Bleeding worsens - Bleeding or spotting lasts over 7 days - You become worse * Telephone Encounter - Graciela Johnson - 04/08/2025 12:05 PM EDT Tc from pt stating that she had a spontaneous about a month and a half ago. She reported having vaginal bleeding for 15 consecutive days afterward. Currently, the bleeding has stopped, but the patient reports experiencing internal discomfort. Contact pt at [phone] Need licensing and registration director documented in this encounter Plan of Treatment Upcoming Encounters Date Type Department Care Team (Late st Contact Info) Description 07/24/2025 3:00 PM EST Office Visit [facility] OPTOMETRY [address] [place], [place] [phone] Charley Gaines, OD [address] [place] [address] documented as of this encounter Visit Diagnoses Not on filedocumented in this encounter Additional Health Concerns Assessment Noted Time PHQ-9 Depression Total Score: 12 025 5:23 PM EDT documented as of this encounter Care Teams Wage And Salary Administrator Relationship Specialty Start Date End Date Mia Ibarra FNP [address] [place] [address] PCP - General Family Medicine 02/05/25 documented as of this encounter
[2025-04-14 17:18] LABS: Trichomonas (NAAT) NOT DETECTED (NOT DETECTED)
[2025-04-14 20:33] LABS: C. trachomatis RNA TMA NOT DETECTED (NOT DETECTED); N. gonorrhoeae RNA TMA NOT DETECTED (NOT DETECTED)
== END 2025-04-09 09:04 | disposition home or self-care (01) ==
LOC: HO.HHCLNP 09:03
PROVIDERS: Visit Provider Advanced Practice Midwife
DX: Z12.4 Encounter for screening for malignant neoplasm of cervix (principal); Z11.51 Encounter for screening for human papillomavirus (HPV); Z20.2 Contact with and (suspected) exposure to infections with a predominantly sexual mode of transmission
CPT/HCPCS: 87491; 87591; 87626; 87661; 88175

== ENCOUNTER 2025-04-10 12:23 | Outpatient (REF) | payer MEDICAID, SELFPAY | END 2025-04-10 12:24 | disposition home or self-care (01) | LOC: HO.HHCL 12:23 | PROVIDERS: PCP Nurse Practitioner Family; Visit Provider Advanced Practice Midwife | DX: R39.9 Unspecified symptoms and signs involving the genitourinary system (principal) | CPT/HCPCS: 87086; 87088; 87186 ==